=== PATIENT | female | born 1940 | race Caucasian/White ===

== ENCOUNTER 2017-01-19 18:35 | Emergency (ER) | payer OTHER ==
[2017-01-19 18:47] VITALS: TEMP 98.4; BMI 27.4
[2017-01-19] MEDS ORDERED: HEMOQUE TEST 1 EACH EACH ONE (19:11)
--- NOTE | 2017-01-19 19:20 | PDOC ---
History of Present Illness - History of Present Illness Initial Comments: 01/19/17 19:26 The patient is a year old female, with a significant past medical history of GERD, who presents to the emergency department with decreased appetite and fatigue for 3 weeks. The patient reports returning from [place] about 3 weeks ago with a cold and states she "feels worse today." She reports having an intermittent cough, non-productive. She denies changes in vision. She denies fainting. She denies chest pain, shortness of breath, headache and dizziness. She denies fever, chills, nausea, vomit, diarrhea and constipation. She denies dysuria, frequency, urgency and hematuria. PCP - Dr. Marissa Lemus PAST MEDICAL HISTORY: no significant history PAST SURGICAL HISTORY: no significant history FAMILY HISTORY: no pertinent history SOCIAL HISTORY: Pt lives with family and is employed. MEDICATIONS: reviewed ALLERGIES: As per nursing notes Adult ROS General: (+) generalized weakness and fatigue. No fevers or chills, no weight loss HEENT: No change in vision. No sore throat,. No ear pain CardioVascular: No chest pain or shortness of breath Respiratory:No cough, or wheezing. Gastrointestinal: no nausea, vomiting, diarrhea or constipation, No rectal bleeding Genitourinary: No dysuria, hematuria, or frequency Musculoskeletal: No joint or muscle pain or swelling Neurologic: No headache, vertigo, dizziness or loss of consciousness Psychiatric: nor depression Skin: No rashes or easy bruising Endocrine: no increased thirst or abnormal weight change Allergic: no skin or latex allergy All other systems reviewed and normal Adult Exam: General: Well-nourished well-developed individual, no acute distress HEENT: Throat: Normal, tonsils normal, no erythema or exudate Neck: Supple, no meningeal signs, no lymphadenopathy Eyes::Pupils equal reactive and round, extraocular motion intact Chest: Nontender to palpation Cardiac: S1-S2 normal, regular rate and rhythm, no murmurs rubs or gallops Respiratory: Lungs clear to auscultation bilateral Abdomen: Soft, nondistended, normal bowel sounds, nontender to palpation diffusely Extremities: Warm, dry, no cyanosis, clubbing, or edema Skin: No rashes Neuro: Alert and oriented x3, nonfocal exam, grossly intact, normal gait Psych: Normal mood and affect <Cami Spears - Last Filed: 01/19/17 20:01> - General History Source: Patient Exam Limitations: No Limitations - History of Present Illness Initial Comments: 01/19/17 22:33 A portion of this note was documented by [facility] under my direction. I have reviewed the details of the note, within reason, and agree with the documentation. The case summary and management plan written by me. Assessment and plan: This is a 76-year-old female who comes in complaining of general malaise and not feeling well. Patient had a complete workup including labs chest x-ray EKG and CAT scan. Patient's workup was unremarkable with the exception of very mild hyponatremia. Patient was told to increase the sodium in her diet. Patient has a primary care appointment to follow-up with her primary care doctor on Wednesday of next week. Patient will keep that appointment. Patient results were discussed with her and a copy of her results were given to her to take to her primary care doctor. <Leni Meyer I - Last Filed: 01/19/17 22:34> - General Chief Complaint: Lightheaded Stated Complaint: "I FEEL SICK", LIGHTHEADED, H/O COLD SX Time Seen by Provider: 01/19/17 19:02 Past History <Cami Spears - Last Filed: 01/19/17 20:01> - Past Medical History Anemia: No Asthma: No Cancer: No Cardiac Disorders: No CVA: No COPD: No CHF: No Dementia: No Diabetes: No GI Disorders: Yes (GERD) Disorders: No HTN: No Hypercholesterolemia: No Liver Disease: No Seizures: No Thyroid Disease: No - Surgical History Abdominal Surgery: Yes Appendectomy: Yes (1978) Cardiac Surgery: No Cholecystectomy: No Lung Surgery: No Neurologic Surgery: No Orthopedic Surgery: Yes (RIGHT SHOULDER ROATATOR CUFF-2005) - Psycho/Social/Smoking Cessation Hx Anxiety: No Suicidal Ideation: No Smoking History: Never smoked Have you smoked in the past 12 months: No Number of Cigarettes Smoked Daily: 20 If you are a former smoker, when did you quit?: Information on smoking cessation initiated: No Hx Alcohol Use: No Drug/Substance Use Hx: No Substance Use Type: Alcohol Hx Substance Use Treatment: No <Leni Meyer I - Last Filed: 01/19/17 22:34> - Past Medical History Allergies/Adverse Reactions: Allergies Allergy/AdvReac Type Severity Reaction Status Date / Time No Known Allergies Allergy Verified 01/19/17 18:38 Home Medications: Ambulatory Orders Pantoprazole Sodium [Protonix] 40 mg PO DAILY 07/06/14 L.acidoph,Paracasei, B.lactis [Probiotic] 1 each PO DAILY 11/27/15 *Physical Exam - Vital Signs Last Vital Signs Temp Pulse Resp BP Pulse Ox 98.4 F 88 18 167/105 97 01/19/17 18:35 01/19/17 18:35 01/19/17 18:35 01/19/17 18:35 01/19/17 18:35 <Cami Spears - Last Filed: 01/19/17 20:01> - Vital Signs Last Vital Signs Temp Pulse Resp BP Pulse Ox 98.4 F 88 18 167/105 97 01/19/17 18:35 01/19/17 18:35 01/19/17 18:35 01/19/17 18:35 01/19/17 18:35 <Leni Meyer I - Last Filed: 01/19/17 22:34> Heart Score/ECG Review - ECG Intrepretation Comment:: 01/19/17 19:37 ECG was read by Dr. Lee at 19:10 Impression: Normal sinus rhythm with sinus arrhythmia <Cami Spears - Last Filed: 01/19/17 20:01> ED Treatment Course - LABORATORY CBC & Chemistry Diagram: 01/19/17 19:40 01/19/17 19:40 - RADIOLOGY Radiograph Interpretation: 01/19/17 20:01 CXR was read by Dr. Rodriguez at 20:00 Impression: COPD. No acute changes. <Cami Spears - Last Filed: 01/19/17 20:01> - LABORATORY CBC & Chemistry Diagram: 01/19/17 19:40 01/19/17 19:40 <Leni Meyer I - Last Filed: 01/19/17 22:34> *DC/Admit/Observation/Transfer - Attestations Scribe Attestion: 01/19/17 19:28 Documentation prepared by Cami Spears, acting as registered medical assistant for Leni Meyer MD <ReganCami - Last Filed: 01/19/17 20:01> - Discharge Dispostion Admit: No <Leni Meyer I - Last Filed: 01/19/17 22:34> Diagnosis at time of Disposition: COPD (chronic obstructive pulmonary disease) Qualifiers: COPD type: unspecified COPD Qualified Code(s): J44.9 - Chronic obstructive pulmonary disease, unspecified - Discharge Dispostion Disposition: HOME Condition at time of disposition: Stable - Referrals Referrals: Prachi Lemus MD [Primary Care Provider] - - Patient Instructions Additional Instructions: Keep your appointment with your primary care doctor for Wednesday. Return to the emergency department immediately with ANY new, persistent or worsening symptoms. Continue any medications as previously prescribed by your physician. . Please make sure your doctor reviews the results of your emergency evaluation. Thank you for coming to the Emergency Department today for your care. It was a pleasure to see you today. Please note that your evaluation is INCOMPLETE until you follow-up with your doctor.
[2017-01-19 20:04] LABS: BASOPHIL 0.9 % (0-2.0); EOSINOPHIL 0.7 % (0-4.5); MCH 30.6 pg (25.7-33.7); MEAN CELL VOLUME 92.9 fl (80-96); MEAN PLT VOLUME 6.8 fl (7.5-11.1); NEUTROPHILS 63.8 % (42.8-82.8); PLATELET COUNT 255 K/MM3 (134-434); RDW 13.9 % (11.6-15.6); WHITE BLOOD COUNT 6.3 K/mm3 (4.0-10.8)
[2017-01-19 20:16] LABS: URINE APPEARANCE Clear; URINE BILIRUBIN Negative (NEGATIVE); URINE BLOOD Negative (NEGATIVE); URINE GLUCOSE (UA) Negative (NEGATIVE); URINE KETONE Negative (NEGATIVE); URINE NITRITE Negative (NEGATIVE); URINE PROTEIN Negative (NEGATIVE); URINE UROBILINOGEN 0.2 (0.2-1.0)
[2017-01-19 20:35] LABS: CPK 68 IU/L (26-192)
[2017-01-19 20:36] LABS: ALBUMIN 4.4 g/dl (3.5-5.0); ALK PHOS 41 U/L (32-92); ANION GAP 10 (8-16); BILIRUBIN,TOTAL 0.7 mg/dl (0.2-1.0); CALCIUM 9.6 mg/dl (8.4-10.2); CO2 24 mmol/L (22-28); CREATININE 0.8 mg/dl (0.6-1.3); GLUCOSE,RANDOM 93 mg/dl (74-106); SGOT/AST 22 U/L (10-42); SGPT/ALT 17 U/L (10-40); TOT PROT 7.5 g/dl (6.4-8.3)
[2017-01-19 20:45] LABS: TROPONIN I (DFP) < 0.03 ng/ml (0.03-0.50)
[2017-01-19 20:53] LABS: URINE LEUK ESTERASE TRACE (NEGATIVE)
[2017-01-19 20:54] LABS: URINE BACTERIA RARE /hpf (NEGATIVE); URINE COLOR STRAW; URINE RBC 0-3 /hpf (0-3); URINE WBC 0-3 (3-5)
[2017-01-19 22:35] VITALS: BP 149/68; PULSE 100
--- NOTE | 2017-01-20 14:17 | EKG ---
Test Reason : Blood Pressure : / mmHG Vent. Rate : 092 BPM Atrial Rate : 092 BPM P-R Int : 162 ms QRS Dur : 076 ms QT Int : 352 ms P-R-T Axes : 081 027 039 degrees QTc Int : 435 ms NORMAL SINUS RHYTHM WITH SINUS ARRHYTHMIA NO PREVIOUS ECGS AVAILABLE Confirmed by MD MAURICIO, GEORGE ([id number]) on 01/20/2017 2:16:51 PM Referred By: DR RENEE Confirmed By:GEORGE MARTÍNEZ MD
[2017-01-21 03:39] LABS: THYROID STIMULATING HORMONE 2.25 uIU/ml (0.358-3.74)
== END 2017-01-19 22:39 | disposition home or self-care (01) ==
LOC: FER 18:35
DX: J44.9 Chronic obstructive pulmonary disease, unspecified (principal)
CPT/HCPCS: 36415; 71020-TC; 71260-TC; 80053; 81003; 81015; 84443; 84484; 85025; 93005; 99284-25

== ENCOUNTER 2020-01-30 06:13 | Day surgery (SDC) | payer SELFPAY ==
[2020-01-26 12:01] VITALS: BMI 27.4
--- OUTSIDE RECORDS SUMMARY | 2020-01-30 06:18 | XMS ---
:1940 Author Organization [facility] Support Name Relationship Address Phone SE, SELF-EMPLOYED Unavailable Unavailable Unavailable SE Unavailable Unavailable Unavailable [address] [place] [address] Re-disclosure Warning The records that you are about to access may contain information from federally- assisted alcohol or drug abuse programs. If such information is present, then the following federally mandated warning applies: This information has been disclosed to you from records protected by federal confidentiality rules (42 CFR part 2). The federal rules prohibit you from making any further disclosure of this information unless further disclosure is expressly permitted by the written consent of the person to whom it pertains or as otherwise permitted by 42 CFR part 2. A general authorization for the release of medical or other information is NOT sufficient for this purpose. The Federal rules restrict any use of the information to criminally investigate or prosecute any alcohol or drug abuse patient.The records that you are about to access may contain highly sensitive health information, the redisclosure of which is protected by Article 27-F of the [facility] Public Health law. If you continue you may haveaccess to information: Regarding HIV / AIDS; Provided by facilities licensed or operated by the [facility] Office of Mental Health; or Provided by the [facility] Office for People With Developmental Disabilities. If such information is present, then the following [facility] mandated warning applies: This information has been disclosed to you from confidential records which are protected by state law. State law prohibits you from making any further disclosure of this information without the specific written consent of the person to whom it pertains, or as otherwise permitted by law. Any unauthorized further disclosure in violation of state law may result in a fine or mcc sentence or both. A general authorization for the release of medical or other information is NOT sufficient authorization for further disclosure. Insurance Providers Payer name Policy type Policy ID Covered Covered republican's Policy P martha / Coverage republican ID relationship to Bird Inf ormation type bird [id number] SP [id number] MEDICARE SELF PAY SP INSURANCE Results ID Date Data Source [id number] 01/26/2020 10:50:00 AM EDT [facility] Name Value Range Interpretation Description Data Sup porting Code Source(s) Document(s ) SARS [facility] coronavirus 2 RNA This lab was ordered by [facility] and reported by [facility]. Procedure
[2020-01-30] MEDS ORDERED: ERYTHROMYCIN 0.5% OPHTHALMIC OINTMENT 3.5 GM TUBE ONE (07:09)
[2020-01-30] MEDS ORDERED: BUPIVACAINE HCL/PF 0.5% (5MG/ML) 10 ML VIAL ONE (07:10)
[2020-01-30] MEDS ORDERED: TETRACAINE 0.5% OPHTH SOLN 2 ML BOTTLE ONE (07:10)
[2020-01-30] MEDS ORDERED: POVIDONE-IODINE 5% OPHTHALMIC PREP 30 ML SOLUTION ONE (07:10)
[2020-01-30] MEDS ORDERED: LIDOCAINE 1%/EPI 1:100000 (20 ML MULTI DOSE VIAL) ONE ×2 (07:10→07:34)
[2020-01-30] MEDS ORDERED: MIDAZOLAM HCL 2 MG/2 ML SINGLE DOSE VIAL ONE (07:18)
[2020-01-30] MEDS ORDERED: PROPOFOL 20 ML ONE ×3 (07:18→09:11)
[2020-01-30] MEDS ORDERED: ONDANSETRON 4 MG/2 ML VIAL ONE (07:49)
--- NOTE | 2020-01-30 10:53 | OP ---
DATE OF OPERATION: 01/30/2020 PREOPERATIVE DIAGNOSIS: Dermatochalasis and fat prominence bilateral upper lids. POSTOPERATIVE DIAGNOSIS: Dermatochalasis and fat prominence bilateral upper lids. PROCEDURE: Upper lid blepharoplasty. OPERATIVE REPORT: Patient brought to the operating room, placed on the operating room table. Vital signs were monitored by Anesthesia. Tetracaine was placed in both eyes. The temporal extent of the temporal redundancy of upper lid skin had been marked preoperatively in the upright position. Timeout was performed. Lid creases were then marked to be symmetric in both upper lids, approximately 9 mm above the central lid margin. The amount of skin that could be safely resected without causing lash eversion or lid retraction was measured and pinched with smooth forceps and the upper edge of the ellipses was marked bilaterally. Once these markings were done, intravenous sedation was administered and then 2% Xylocaine, 1:100,000 epinephrine was injected subcutaneously for 3 mL in each upper lid. Massage was applied for hemostasis. Patient was prepped and draped in usual sterile fashion exposing both eyes and the following procedure was performed: The lid creases were incised in both upper lids symmetrically following which the upper ellipses were then incised. The skin was removed with a [place] needle in the subdermal plane. Hemostasis was achieved with [place] needle and antibiotic irrigation was used throughout the case. The orbicularis was then opened from nasal to central eyelid in both eyelids and the nasal fat pocket was dissected with the nasal fat being dissected out as a pedicle. It was then sutured to the underlying surface of the orbicularis in the central portion of the eyelid where the patient had a preexisting early A frame deformity or depression. The central fat was sculpted considerably as needed as was the nasal fat after the pedicle flap had been mobilized and the fat transfer was completed. On the left side due to slightly lower brow position and prominence the dissection was carried through orbicularis to the superolateral orbital rim. Two interrupted 6-0 Vicryl sutures were used to suture the orbicularis inferior to the incision to the periosteum overlying the lateral and the superior orbicularis. These were tied elevating the temporal brow slightly to be more symmetric with the contralateral side. These brows were permanently marked with tattoo and, therefore there was asymmetry preexisting. After hemostasis and antibiotic, the wounds were then closed with interrupted and running 6-0 nylon sutures with plastic technique. Erythromycin ointment was placed on the sutures and the patient was taken to the recovery room in stable condition. WALTER WATTS M.D. VINI/[id number]
[2020-01-30 11:08] VITALS: PULSE 71
[2020-01-30 11:24] VITALS: TEMP 97.8
[2020-01-30 12:08] VITALS: BP 137/73
== END 2020-01-30 11:55 | disposition home or self-care (01) ==
LOC: FASU 06:13
PROVIDERS: ATTEND Ophthalmology
PROC: 08SN0ZZ Reposition Right Upper Eyelid, Open Approach (ICD-10-PCS; 2020-01-30)
PROC: 08SP0ZZ Reposition Left Upper Eyelid, Open Approach (ICD-10-PCS; principal; 2020-01-30 08:22)
DX: H02.831 Dermatochalasis of right upper eyelid (principal); H02.834 Dermatochalasis of left upper eyelid
CPT/HCPCS: 94760